=== PATIENT | female | born 1970 | race American Indian/Alaskan Native ===

== ENCOUNTER 2016-09-26 12:44 | Emergency (ER) | payer OTHER ==
[2016-09-26 12:57] VITALS: TEMP 97; O2SAT 100
[2016-09-26 13:12] VITALS: BP 155/96; RESP 17
--- NOTE | 2016-09-26 14:05 | ED PDOC ---
HPI: Chest Pain Time Seen by Provider: 09/26/16 13:04 Chief Complaint (Nursing): Chest Pain Chief Complaint (Provider): Chest Tightness History Per: Patient History/Exam Limitations: no limitations Onset/Duration Of Symptoms: Days (x4 ), Intermittent Episodes Quality: Burning, Tightness Additional Complaint(s): Dinorah Collazo is a 46 year old female, with a past medical history of hypertension, who presents to the emergency department complaining of chest tightness with associated symptoms of palpations intermittently ongoing for 4 days. She denies dizziness, leg swelling or shortness of breath. Patient reports lifting a heavy object 1 week ago and getting a massage 4 days ago. Patient reports her chest discomfort began after she received the massage. She describes the discomfort as a "pulled muscle" and "twitching" sensation usually followed by a burning sensation which radiates from her left shoulder to her chest, making her feel anxious. She states she holds her breath during her anxious episodes. PMD: None provided. Past Medical History Reviewed: Historical Data, Nursing Documentation, Vital Signs Vital Signs: Last Vital Signs Temp 97 F L 09/26/16 12:53 Pulse 123 H 09/26/16 14:55 Resp 17 09/26/16 13:07 BP 155/96 H 09/26/16 13:07 Pulse Ox 100 09/26/16 14:55 - Medical History PMH: HTN - Surgical History Surgical History: No Surg Hx - Family History Family History: States: Unknown Family Hx - Social History Current smoker - smoking cessation education provided: No Alcohol: Occasional Drugs: Denies - Allergies Allergies/Adverse Reactions: Allergies Allergy/AdvReac Type Severity Reaction Status Date / Time No Known Allergies Allergy Unverified 09/15/12 10:28 Review of Systems ROS Statement: Except As Marked, All Systems Reviewed And Found Negative Cardiovascular: Positive for: Chest Pain, Palpitations Musculoskeletal: Positive for: Shoulder Pain (left radiating to chest). Negative for: Other (leg swelling) Neurological: Negative for: Dizziness Psych: Positive for: Anxiety (during symptoms ) Physical Exam - Reviewed Nursing Documentation Reviewed: Yes Vital Signs Reviewed: Yes - Physical Exam Appears: Positive for: Well, Non-toxic, No Acute Distress Head Exam: Positive for: ATRAUMATIC, NORMAL INSPECTION, NORMOCEPHALIC Skin: Positive for: Normal Color, Warm, Dry Eye Exam: Positive for: EOMI, Normal appearance, PERRL ENT: Positive for: Normal ENT Inspection Neck: Positive for: Normal, Painless ROM, Supple Cardiovascular/Chest: Positive for: Regular Rate, Rhythm, Chest Non Tender Respiratory: Positive for: CNT, Normal Breath Sounds Gastrointestinal/Abdominal: Positive for: Normal Exam, Bowel Sounds, Soft. Negative for: Tenderness Back: Positive for: Normal Inspection Extremity: Positive for: Normal ROM, Capillary Refill (< 2 seconds). Negative for: Deformity Neurologic/Psych: Positive for: Alert, Oriented - Laboratory Results Result Diagrams: 09/26/16 14:04 09/26/16 14:04 - ECG ECG Rhythm: Positive for: Sinus Tachycardia Interpretation Of ECG: premature atrial contraction Rate: 123 (bpm) O2 Sat by Pulse Oximetry: 100 (RA) Pulse Ox Interpretation: Normal Medical Decision Making Medical Decision Making: Initial Impression: Chest pain and Palpitations differentials include ACS, pulmonary embolism, cardiac arrhythmia, costochondritis Initial Plan: --ECG --Labs --Troponin I --D Dimer --CXR --threat monitoring analyst cont --Reevaluation Scribe Attestation: Documented by Liana Pool, acting as a scribe for Shelly Curtis MD. Provider Scribe Attestation: All medical record entries made by the Scribe were at my direction and personally dictated by me. I have reviewed the chart and agree that the record accurately reflects my personal performance of the history, physical exam, medical decision making, and the department course for this patient. I have also personally directed, reviewed, and agree with the discharge instructions and disposition. Disposition - Clinical Impression Clinical Impression: Chest pain - Patient ED Disposition Is Patient to be Admitted: Transfer of Care Counseled Patient/Family Regarding: Studies Performed, Diagnosis - Disposition Disposition: Transfer of Care Disposition Time: 15:00 Condition: FAIR Additional Instructions: Return for worsening. Follow up with your PCP in 2-3 days. Patient Signed Over To: Reno Field Handoff Comments: pending CT Angio
[2016-09-26 14:08] LABS: BASO % 1.1 % (0.0-2.0); EOS % 0.3 % (0.0-4.0); HEMOGLOBIN 12.5 g/dL (12.0-16.0); LYMPH # 1.1 K/uL (1.0-4.3); LYMPH % 28.9 % (20.0-40.0); MEAN CELL VOLUME 74.3 fl (81.0-99.0); MEAN CORPUSCULAR HEMOGLOBIN 24.1 pg (27.0-31.0); MEAN CORPUSCULAR HGB CONC 32.4 g/dL (33.0-37.0); MONO # 0.4 K/uL (0.0-0.8); MONO % 9.2 % (0.0-10.0); NEUT # 2.4 K/uL (1.8-7.0); NEUT % 60.5 % (50.0-75.0); NRBC % 0.1 % (0.0-0.0); RBC 5.18 Mil/uL (3.80-5.20); RED CELL DISTRIBUTION WIDTH 15.2 % (11.5-14.5); WHITE BLOOD COUNT 3.9 K/uL (4.8-10.8)
[2016-09-26 14:21] VITALS: PULSE 123
[2016-09-26 14:22] LABS: BLOOD UREA NITROGEN 11 mg/dl (7-17); CALCIUM 9.7 mg/dL (8.4-10.2); GFR AFRICAN-AMERICAN > 60; GFR NON-AFRICAN AMERICAN 60
--- NOTE | 2016-09-26 15:05 | ED PDOC ---
- Laboratory Results Result Diagrams: 09/26/16 14:04 09/26/16 14:04 - ECG O2 Sat by Pulse Oximetry: 100 (RA) Pulse Ox Interpretation: Normal Medical Decision Making Medical Decision Making: Receiving Sign Out: Pt signed out to me by Dr. Curtis pending CT Angio. Scribe Attestation: Documented by Cindy Skinner acting as a scribe for Reno Field MD. Scribe Attestation: All medical record entries made by the Scribe were at my direction and personally dictated by me. I have reviewed the chart and agree that the record accurately reflects my personal performance of the history, physical exam, medical decision making, and the department course for this patient. I have also personally directed, reviewed, and agree with the discharge instructions and disposition. Disposition - Clinical Impression Clinical Impression: Chest pain - POA Present On Arrival: None - Disposition Referrals: [facility] [Outside] [facility] [Outside] Disposition: Routine/Home Disposition Time: 19:07 Condition: STABLE Additional Instructions: Return for worsening. Follow up with your PCP in 2-3 days. Instructions: Chest Pain (ED) Progress Note - Review of Symptoms Events since last encounter: Time: 1430 CT Angio IMPRESSION: No CTA evidence for acute pulmonary embolism. No evidence of consolidation, pleural effusions or pneumothorax. Time: 1906 Pt in no acute distress. Stable for discharge home.
--- NOTE | 2016-09-26 15:07 | RAD ---
HISTORY: chest pain COMPARISON: None. TECHNIQUE: Chest PA and lateral FINDINGS: LUNGS: No active pulmonary disease. PLEURA: No significant pleural effusion identified. No pneumothorax apparent. CARDIOVASCULAR: Normal. OSSEOUS STRUCTURES: No significant abnormalities. VISUALIZED UPPER ABDOMEN: Normal. OTHER FINDINGS: None. IMPRESSION: No active disease.
[2016-09-26] MEDS ORDERED: Iodixanol 320 MG/ML 100 ML BOTTLE IV ONE (15:32)
[2016-09-26] MEDS ORDERED: Sodium Chloride 0.9% 50 ML IV ONE (15:32)
--- NOTE | 2016-09-26 16:26 | CT ---
PROCEDURE: CT Chest with contrast (Pulmonary Angiogram) HISTORY: Chest pain COMPARISON: Plain radiographs performed the same day. TECHNIQUE: Axial computed tomography images were obtained of the chest in the pulmonary arterial phase of enhancement. Coronal and sagittal reformatted images were created and reviewed. Intravenous contrast dose: 90 mL Visipaque 320 Radiation dose: Total exam DLP = 361.90 MGy-cm. This CT exam was performed using one or more of the following dose reduction techniques: Automated exposure control, adjustment of the mA and/or kV according to patient size, and/or use of iterative reconstruction technique. FINDINGS: PULMONARY ARTERIES: There are no filling defects in the pulmonary arteries to suggest acute pulmonary embolism. . AORTA: The aorta is normal in caliber without evidence of aortic aneurysm or dissection LUNGS: The lungs are well inflated and clear. There is dependent atelectasis in the posterior lower lobes. There is no mass, consolidation or nodules. PLEURAL SPACES: There are no pleural effusions or pneumothorax. HEART: The heart is normal in size without pericardial effusion. LYMPH NODES: No pathologic mediastinal or hilar lymphadenopathy. BONES, CHEST WALL: Within normal limits for the patient's age. No fracture or destructive lesion OTHER FINDINGS: There are scattered low-attenuation lesions in the liver, the largest in the right hepatic lobe measures 15 mm and may represent simple cysts or hemangiomas. IMPRESSION: No CTA evidence for acute pulmonary embolism. No evidence of consolidation, pleural effusions or pneumothorax.
--- NOTE | 2016-09-26 18:02 | CARD ---
APPROVED REPORT EKG Measurement Heart [id number] NM [id number] <Conclusion> Normal sinus rhythm Right atrial enlargement Prolonged QT Abnormal ECG
--- NOTE | 2016-10-02 10:04 | CARD ---
APPROVED REPORT EKG Measurement Heart [id number] [id number] <Conclusion> Sinus tachycardia with premature atrial complexes Possible Left atrial enlargement Borderline ECG
== END 2016-09-26 19:26 | disposition home or self-care (01) ==
LOC: H.ER 12:44
DX: R07.89 Other chest pain (principal); I10 Essential (primary) hypertension